=== PATIENT | female | born 1995 | race Caucasian/White ===

== ENCOUNTER 2017-04-30 13:20 | Emergency (ER) | payer OTHER ==
[~2017-04-30] VITALS: Ht 167.6 cm; Wt 84.0 kg
[~2017-04-30 13:20] MED LIST: IBUP-232 PO; TYLE3 PO; Z.0.BCPILL PO
[2017-04-30 13:36] VITALS: BP 122/59; PULSE 65; RESP 16; TEMP 98.7; O2SAT 98
[2017-04-30] MEDS ORDERED: [UNRECOGNIZED DRUG - REMARK] PO (14:28)
--- NOTE | 2017-04-30 14:42 | PD ---
HPI . Head injury Chief Complaint: Head Injury Time Seen by Provider: 14:27 Travel History International Travel<30 days: No Contact w/Intl Traveler<30days: No Traveled to known affect area: No History of Present Illness HPI This patient presents for evaluation of a head injury. She plays rugby. She was inadvertently kicked in the forehead last night during practice. Not have a loss of consciousness but subsequently evolved a headache associated with some nausea. The symptoms subsided and she feels totally back to normal today. She states that she is just here today to be checked to make sure that she is alright. PFSH Past Medical History Medical History: Denies Significant Hx Diminished Hearing: No Medical other: Yes (WISDOM TEETH) Immunizations Current: Yes Tetanus Vaccination: < 5 Years Influenza Vaccination: No ?: Not LMP: 2 DAYS AGO Past Surgical History Surgical History: No Previous Surgery Social History Alcohol Use: Yes (OCC) Tobacco Use: No Substance Use: No Allergies-Medications (Allergen,Severity, Reaction): Coded Allergies: No Known Allergies (Verified Adverse Reaction, Unknown, 04/30/17) Reported Meds & Prescriptions Reported Meds & Active Scripts Active Reported [Harpal Control Pill] 1 PO DAILY Review of Systems Except as stated in HPI: all other systems reviewed are Neg Eyes: No: Blurred Vision HENT: No: Headaches, Neck Stiffness Neurologic: No: Syncope, Focal Abnormalities, Coordination Problem, Headache ( she had a headache yesterday but none today), Change in Mentation, Slurred Speech, Seizures Physical Exam Narrative GENERAL: Awake and alert and in no acute distress. SKIN: Warm and dry. Good color. HEAD: Normocephalic/atraumatic. EYES: Pupils are equal. Extraocular movements are intact. NECK: Normal range of motion. CARDIOVASCULAR: Regular rate and rhythm. RESPIRATORY: Nonlabored respirations. MUSCULOSKELETAL: Atraumatic. NEUROLOGICAL: Alert and oriented 3. Cranial nerves are grossly intact. 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 [id number] exam is intact PSYCHIATRIC: Appropriate mood and affect. Data Data Last Documented VS Vital Signs Date Time Temp Pulse Resp B/P (MAP) Pulse Ox O2 Delivery O2 Flow Rate FiO2 04/30/17 14:25 Room Air 04/30/17 13:36 98.7 65 16 122/59 (80) 98 Orders Orders Ed Discharge Order (04/30/17 14:36) [facility] Medical Decision Making Medical Screen Exam Complete: Yes Emergency Medical Condition: Yes Differential Diagnosis My differential diagnosis of head trauma includes but is not limited to scalp contusion, concussion, intracerebral hemorrhage. Narrative Course This patient presents for the evaluation of a head injury which occurred last night. She is completely normal today. It sounds like she had a mild concussion. I am not going to scan her head. She has been given postconcussive instructions. Diagnosis Primary Impression: Concussion Qualified Codes: S06.0X0A - Concussion without loss of consciousness, initial encounter Patient Instructions: General Instructions, Concussion (ED) Departure Forms: Tests/Procedures Additional Instructions: If any actibity causes you to feel bad, stop. No contact sports for 7 days. Disposition: 01 DISCHARGE HOME Condition: Stable Violette Jacinto MD Apr 30, 2017 14:41
== END 2017-04-30 14:55 | disposition home or self-care (01) ==
LOC: PHED 13:20 → PHEFT 14:55
DX: S06.0X0A Concussion without loss of consciousness, initial encounter (principal); W50.1XXA Accidental kick by another person, initial encounter; Y93.63 Activity, rugby
CPT/HCPCS: 99283